=== PATIENT | female | born 1965 | race Caucasian/White ===

== ENCOUNTER 2018-03-11 14:40 | Observation (INO) | payer OTHER ==
[~2018-03-11] VITALS: Ht 175.3 cm; Wt 96.1 kg
[2018-03-11 15:10] LABS: HEMATOCRIT 40.4 % (37.0-47.0); HEMOGLOBIN 13.3 g/dl (12.0-16.0); IMMATURE GRANULOCYTES 0.3 % (0.0-1.0); MEAN CELL VOLUME 91.6 fL CALC (80.0-100.0); MEAN CORPUSCULAR HGB 30.2 pG CALC (26.0-32.0); MEAN CORPUSCULAR HGB CONC 32.9 g/L CALC (32.0-36.0); NEUT# 3.37 thou/uL (2.00-7.15); RED BLOOD COUNT 4.41 mill/uL (4.20-5.60); RED CELL DISTRI WIDTH 13.2 % (11.5-15.5)
[2018-03-11 15:34] LABS: ANION GAP 17 (6-22 (CALC)); BUN 19 mg/dL (7-17); BUN/CREATININE RATIO 21 (12-20 (CALC)); CARBON DIOXIDE 29 mmol/l (22-30); CHLORIDE 102 mmol/l (95-108); CREATININE 0.9 mg/dL (0.5-1.0); GFR > 60 ML/MIN (>=60 (CALC)); GFR FOR AFR.AMER. > 60 ML/MIN (>=60 (CALC)); POTASSIUM 4.2 mmol/l (3.5-5.1); SODIUM 143 mmol/l (137-146)
[2018-03-11] MEDS ORDERED: SYNTHROID25 MCG PO (16:12)
[2018-03-11 17:34] VITALS: BP 122/86
[2018-03-11 20:00] VITALS: BP 117/64
[2018-03-12 00:40] VITALS: BP 122/68
[2018-03-12 01:40] VITALS: BP 117/65
[2018-03-12 04:50] VITALS: BP 125/73
[2018-03-12 09:56] VITALS: BP 131/81
[2018-03-12 10:15] LABS: CHOLESTEROL HDL RATIO 3.1 (<4.4 (CALC)); MAGNESIUM 2.1 mg/dL (1.6-2.3)
== END 2018-03-12 12:27 | disposition home or self-care (01) | DRG 313 ==
LOC: ED 14:40 → ED-I 16:26 → ED 16:37 → MS2 16:38
PROVIDERS: Family Medicine; Nurse Practitioner Family; ADMIT Internal Medicine; ATTEND Internal Medicine
DX: R07.9 Chest pain, unspecified (principal); C50.912 Malignant neoplasm of unspecified site of left female breast; E03.9 Hypothyroidism, unspecified; E78.5 Hyperlipidemia, unspecified; Z68.31 Body mass index [BMI] 31.0-31.9, adult; Z92.3 Personal history of irradiation; Z92.21 Personal history of antineoplastic chemotherapy
CPT/HCPCS: G0378